=== PATIENT | male | born 1995 | race Caucasian/White ===

== ENCOUNTER 2022-08-17 08:54 | Emergency (ER) | payer OTHER ==
[2022-08-17] MEDS ORDERED: LIDOCAINE 1% MPF 30 ML VIAL ONE ×2 (09:51→10:12)
--- NOTE | 2022-08-17 10:42 | ER ---
Nurse's Notes [facility] Name: Mamadou Khanna Jr Age: 26 yrs Sex: Male : 1995 Arrival Date: 08/17/2022 Time: 08:59 Bed 6 Private MD: Diagnosis: Other hemorrhoids Presentation: 08/17 09:13 Chief complaint: Patient states: I feel like I have hemorrhoids, I have pain around my kr3 rectum. Coronavirus screen: Vaccine status: Patient reports receiving the 2nd dose of the covid vaccine. Client denies travel out of the [place] in the last 14 days. Ebola Screen: Patient denies exposure to infectious person. Patient denies travel to an Ebola-affected area in the 21 days before illness onset. Initial Sepsis Screen: Does the patient meet any 2 criteria? No. Patient's initial sepsis screen is negative. Does the patient have a suspected source of infection? No. Patient's initial sepsis screen is negative. Risk Assessment: Do you want to hurt yourself or someone else? Patient reports no desire to harm self or others. Onset of symptoms was August 15, 2022. 09:13 Method Of Arrival: Ambulatory kr3 09:13 Acuity: CAROLEE 4 kr3 09:14 Onset of symptoms. kr3 Triage Assessment: 09:15 General: Appears in no apparent distress. uncomfortable, Behavior is calm, cooperative, kr3 appropriate for age. Pain: Complains of pain in gluteal cleft. Historical: - Allergies: 09:15 No Known Allergies; kr3 - Immunization history:: Adult Immunizations not up to date. - Social history:: Smoking status: Patient reports the use of cigarette tobacco products, denies chronic smoking, but will smoke occasionally. Screenin:59 Abuse screen: Denies threats or abuse. Nutritional screening: No deficits noted. kr3 Tuberculosis screening: No symptoms or risk factors identified. Fall Risk None identified. Assessment: 09:15 Reassessment: see triage note. kr3 10:15 Reassessment: Patient appears in no apparent distress at this time. Patient and/or kr3 family updated on plan of care and expected duration. Pain level reassessed. Patient is alert, oriented x 3, equal unlabored respirations, skin warm/dry/pink. 10:58 Reassessment: No changes from previously documented assessment. Patient is alert, kr3 oriented x 3, equal unlabored respirations, skin warm/dry/pink. General: Appears in no apparent distress. uncomfortable. Vital Signs: 09:14 BP 117 / 78; Pulse 79; Resp 18; Temp 98.1; Pulse Ox 97% on R/A; kr3 09:22 Weight 102.06 kg; Height 5 ft. 8 in. (172.72 cm); kr3 10:58 BP 153 / 81; Pulse 75; Resp 18; Pulse Ox 100% on R/A; kr3 09:22 Body Mass Index 34.21 (102.06 kg, 172.72 cm) kr3 ED Course: 08:59 Patient arrived in ED. rg4 09:02 Abraham Anderson PA is PHCP. [facility] 09:02 Donald Ortez MD is Attending Physician. jmm 09:12 Arm band placed on right wrist. Patient placed in an exam room, on a stretcher. kr3 09:12 Placed in gown. Bed in low position. Call light in reach. kr3 09:13 Donna Powell, CAIO is Primary Nurse. kr3 09:14 Triage completed. kr3 10:38 Arcenio Portillo MD is Referral Physician. [facility] 10:59 No provider procedures requiring assistance completed. Patient did not have IV access kr3 during this emergency room visit. Administered Medications: 11:02 Drug: Lidocaine-Epinephrine -1%: (1:100,000) 20 ml {Note: given by provider for kr3 hemorrhoid drain.} Volume: 20 ml; Route: Infiltration; 11:03 Follow up: Response: No adverse reaction kr3 Medication: 11:02 VIS not applicable for this client. kr3 Outcome: 10:41 Discharge ordered by . [facility] 11:01 Discharged to home kr3 11:01 Condition: stable 11:01 Discharge instructions given to patient, Instructed on discharge instructions, follow up and referral plans. medication usage, Demonstrated understanding of instructions, follow-up care, medications, Prescriptions given X 1. 11:03 Patient left the ED. kr3 Signatures: Abraham Anderson PA PA jmm Garcia, Rubi rg4 Donna Powell, RN RN kr3 Corrections: (The following items were deleted from the chart) 09:14 09:13 Onset of symptoms was August 17, 2022 kr3 kr3 10:49 10:48 Reassessment: see triage note. kr3 kr3 10:50 10:49 Reassessment: kr3 kr3
--- NOTE | 2022-08-17 10:42 | EDPHYS ---
Physician Documentation [facility] Name: Mamadou Khanna Jr Age: 26 yrs Sex: Male : 1995 Arrival Date: 08/17/2022 Time: 08:59 Bed 6 Private MD: ED Physician Donald Ortez HPI: 08/17 09:13 This 26 yrs old Male presents to ER via Ambulatory with complaints of Hemorrhoids. jmm 09:13 The patient presents to the emergency department with pain in the rectal area. Onset: jmm The symptoms/episode began/occurred gradually. Context: the patient has no known special context relating to the rectal area complaint(s). This is a 26 year old male that presents to the ED with complaints of rectal pain beginning 3 days ago. Denies fever. Painful sitting. . Historical: - Allergies: 09:15 No Known Allergies; kr3 - Immunization history:: Adult Immunizations not up to date. - Social history:: Smoking status: Patient reports the use of cigarette tobacco products, denies chronic smoking, but will smoke occasionally. ROS: 09:13 Constitutional: Negative for fever, chills, and weight loss, Cardiovascular: Negative jmm for chest pain, palpitations, and edema, Respiratory: Negative for shortness of breath, cough, wheezing, and pleuritic chest pain. 09:13 Abdomen/GI: Positive for rectal pain. 09:13 All other systems are negative. Exam: 09:13 Constitutional: This is a well developed, well nourished patient who is awake, alert, jmm and in no acute distress. Head/Face: atraumatic. Eyes: EOMI, no conjunctival erythema appreciated ENT: Moist Mucus Membranes Neck: Trachea midline, Supple Chest/axilla: Normal chest wall appearance and motion. Cardiovascular: Regular rate and rhythm. No edema appreciated Respiratory: Normal respirations, no respiratory distress appreciated 09:13 Back: Normal ROM Skin: General appearance color normal MS/ Extremity: Moves all extremities, no obvious deformities appreciated, no edema noted to the lower extremities Neuro: Awake and alert Psych: Behavior is normal, Mood is normal, Patient is cooperative and pleasant 09:13 Abdomen/GI: Rectal exam: hemorrhoid(s), external, with thrombosis. Vital Signs: 09:14 BP 117 / 78; Pulse 79; Resp 18; Temp 98.1; Pulse Ox 97% on R/A; kr3 09:22 Weight 102.06 kg; Height 5 ft. 8 in. (172.72 cm); kr3 10:58 BP 153 / 81; Pulse 75; Resp 18; Pulse Ox 100% on R/A; kr3 09:22 Body Mass Index 34.21 (102.06 kg, 172.72 cm) kr3 MDM: 09:13 Patient medically screened. [facility] 10:37 Data reviewed: vital signs, nurses notes. Counseling: I had a detailed discussion with [facility] the patient and/or guardian regarding: the historical points, exam findings, and any diagnostic results supporting the discharge/admit diagnosis, the need for outpatient follow up, to return to the emergency department if symptoms worsen or persist or if there are any questions or concerns that arise at home. Administered Medications: 11:02 Drug: Lidocaine-Epinephrine -1%: (1:100,000) 20 ml {Note: given by provider for kr3 hemorrhoid drain.} Volume: 20 ml; Route: Infiltration; 11:03 Follow up: Response: No adverse reaction kr3 Disposition: 17:40 Co-signature as Attending Physician, Donald Ortez MD I agree with the assessment and rt plan of care. Disposition Summary: 08/17/22 10:41 Discharge Ordered Location: Home [facility] Condition: Stable [facility] Diagnosis - Other hemorrhoids [facility] Followup: [facility] - With: Arcenio Portillo MD - When: 2 - 3 days - Reason: Recheck today's complaints, Continuance of care, Re-evaluation by your physician Discharge Instructions: - Discharge Summary Sheet [facility] - Hemorrhoids [facility] Forms: - Medication Reconciliation Form [facility] - Thank You Letter [facility] - Antibiotic Education [facility] - Prescription Opioid Use [facility] Prescriptions: - Anusol-HC 2.5 % Topical cream with perineal applicator - apply 1 application by TOPICAL route 2 times per day; 1 tube; Refills: 0, [facility] Product Selection Permitted Signatures: Abraham Anderson PA PA jmm Reid, Kelley, RN RN kr3 Donald Ortez MD MD rt
[2022-08-17 11:10] VITALS: TEMP 98.1
[2022-08-17 11:11] VITALS: BP 153/81; O2SAT 100
== END 2022-08-17 11:03 | disposition home or self-care (01) ==
LOC: ER 08:54
DX: K64.8 Other hemorrhoids (principal); F17.210 Nicotine dependence, cigarettes, uncomplicated
CPT/HCPCS: 99283; J2001